=== PATIENT | female | born 1970 | race Caucasian/White ===

== ENCOUNTER 2021-05-26 13:47 | Emergency (ER) | payer OTHER ==
[~2021-05-26] VITALS: Ht 170.2 cm; Wt 108.9 kg
[~2021-05-26 13:47] MED LIST: CLINDAMYCIN HC300 MG PO
[2021-05-26 15:22] LABS: HEMOGLOBIN 13.5 gm/dl (12.3-15.3); RED BLOOD COUNT 4.37 M/UL (4.00-5.10)
[2021-05-26 15:46] LABS: BUN/CREATININE RATIO 12 (0-10)
[2021-05-26] MEDS ORDERED: CLINDAMYCIN HC150 MG PO (18:21)
[2021-05-26] MEDS ORDERED: DIFLUCAN150 MG PO (18:21)
[2021-05-26] MEDS ORDERED: VAZALORE81 MG PO (22:04)
[2021-05-26] MEDS ORDERED: DECADRON6 MG PO (22:04)
== END 2021-05-26 22:40 | disposition home or self-care (01) ==
LOC: ER1 13:47
PROVIDERS: Physician Assistant
DX: Z23 Encounter for immunization (principal); U07.1 COVID-19; L03.116 Cellulitis of left lower limb; L03.115 Cellulitis of right lower limb; R06.02 Shortness of breath; E78.5 Hyperlipidemia, unspecified; I10 Essential (primary) hypertension; Z90.49 Acquired absence of other specified parts of digestive tract; Z90.710 Acquired absence of both cervix and uterus; Z90.89 Acquired absence of other organs; Z88.0 Allergy status to penicillin
CPT/HCPCS: 71045; 80053; 82550; 82553; 83874; 83880; 84484; 85025; 93005; 93971; 99285; M0243; U0002